=== PATIENT | male | born 1960 | race Caucasian/White ===

== ENCOUNTER 2017-04-19 11:53 | Observation (INO) | payer OTHER ==
[2017-04-19 11:58] VITALS: BMI 25.7
--- NOTE | 2017-04-19 12:24 | C.PDOC ---
Time Seen by Provider: 04/19/17 12:15 Chief Complaint (Nursing): Chest Pain Past Medical History Vital Signs: Last Vital Signs Temp 102.6 F H 04/19/17 11:55 Pulse 108 H 04/19/17 11:55 Resp 18 04/19/17 11:55 BP 124/76 04/19/17 11:55 Pulse Ox 95 04/19/17 12:24 Family History: States: Unknown Family Hx - Social History Hx Alcohol Use: Yes Hx Substance Use: Yes - Immunization History Hx Tetanus Toxoid Vaccination: No Hx Influenza Vaccination: No ED Course And Treatment O2 Sat by Pulse Oximetry: 95 Disposition - Disposition Forms: [facility] (Slovenian)
--- NOTE | 2017-04-19 12:35 | C.PDOC ---
History Of Present Illness 56 year old male who presents to the ER with a complaint of abdominal pain, headache, and fever for 3 days, associated with some diarrhea, cough, and congestion. Denies nausea, vomiting, or other associated symptoms. Time Seen by Provider: 04/19/17 12:15 Chief Complaint (Nursing): Chest Pain History Per: Patient History/Exam Limitations: no limitations Onset/Duration Of Symptoms: Days Current Symptoms Are (Timing): Still Present Radiation Of Pain To:: None Quality Of Discomfort: Unable To Describe Associated Symptoms: Fever, Diarrhea. denies: Nausea, Vomiting Exacerbating Factors: None Alleviating Factors: None Recent travel outside of the [place]: No Past Medical History Reviewed: Historical Data, Nursing Documentation, Vital Signs Vital Signs: Last Vital Signs Temp 99 F 04/19/17 15:20 Pulse 77 04/19/17 16:48 Resp 14 04/19/17 16:48 BP 91/57 L 04/19/17 16:48 Pulse Ox 94 L 04/19/17 16:48 - Medical History PMH: No Chronic Diseases Surgical History: No Surg Hx Family History: States: Unknown Family Hx - Social History Hx Alcohol Use: Yes Hx Substance Use: Yes - Immunization History Hx Tetanus Toxoid Vaccination: No Hx Influenza Vaccination: No Hx Pneumococcal Vaccination: No Review Of Systems Except As Marked, All Systems Reviewed And Found Negative. Constitutional: Positive for: Fever ENT: Positive for: Nose Congestion Respiratory: Positive for: Cough Gastrointestinal: Positive for: Abdominal Pain, Diarrhea. Negative for: Nausea , Vomiting Neurological: Positive for: Headache Physical Exam - Physical Exam Appears: Non-toxic, No Acute Distress Skin: Normal Color, Warm, Dry Head: Atraumatic, Normacephalic Nose: Normal, No Discharge Oral Mucosa: Moist Neck: Normal, Supple Chest: Symmetrical Cardiovascular: Rhythm Regular Respiratory: Normal Breath Sounds, No Accessory Muscle Use, No Rales, No Rhonchi , No Wheezing Gastrointestinal/Abdominal: Soft, No Tenderness Neurological/Psych: Oriented x3, Normal Speech, Normal Cognition ED Course And Treatment - Laboratory Results Result Diagrams: 04/19/17 13:54 04/19/17 13:54 ECG: Interpreted By Me, Viewed By Me ECG Rhythm: Sinus Tachycardia ECG Interpretation: Normal Rate From EC O2 Sat by Pulse Oximetry: 95 (Room air) Pulse Ox Interpretation: Normal - Radiology CXR: Interpreted by Me, Viewed By Me CXR Interpretation: Yes: Infiltrates (Possible to right lung, compared to prior) Progress - Re-Evaluation Re-evaluation Note: 04/19/17 15:08 APPEARS COMFORTABLE NARD. 95% RA. PENDING CT, UA 04/19/17 16:58 d/w dr SERRANO WILL ADMIT - Data Reviewed Data Reviewed: Lab, Diagnostic imaging, EKG, Old records - Continuity of Care Discussed patient case with:: Patient, Family-HIPPA compliant Medical Decision Making Medical Decision Making: Plan: * Blood work * CT abd/pel * EKG * CXR * Cultures * Tylenol * IV fluids Disposition Counseled Patient/Family Regarding: Studies Performed, Diagnosis - Disposition Disposition: HOSPITALIZED Disposition Time: 17:00 Condition: STABLE Forms: [employer] [facility] (Lao) - POA Present On Arrival: None - Clinical Impression Clinical Impression: Pneumonia - Scribe Statement The provider has reviewed the documentation as recorded by the Scribe Asael Camarillo All medical record entries made by the Scribe were at my direction and personally dictated by me. I have reviewed the chart and agree that the record accurately reflects my personal performance of the history, physical exam, medical decision making, and the department course for this patient. I have also personally directed, reviewed, and agree with the discharge instructions and disposition. Decision To Admit - Pt Status Changed To: Hospital Disposition Of: Observation - . Bed Request Type: Regular Admitting Physician: Ailin Serrano Patient Diagnosis: Pneumonia
[2017-04-19] MEDS ORDERED: Azithromycin 500 MG in Sodium Chloride 0.9% 250 ML IV STA (12:39)
[2017-04-19] MEDS ORDERED: cefTRIAXone IV 1 gm in Dextros 50 ML IV ONE (12:39)
--- NOTE | 2017-04-19 13:08 | RAD ---
HISTORY: Sepsis Patient COMPARISON: Chest x-ray performed 02/14/16 TECHNIQUE: Chest, one view. FINDINGS: LUNGS: Patchy opacity in the medial right lower lobe may reflect atelectasis or developing infiltrate. Please note that chest x-ray has limited sensitivity for the detection of pulmonary masses. PLEURA: No significant pleural effusion identified. No definite pneumothorax . CARDIOVASCULAR: Heart size appears within normal limits. OSSEOUS STRUCTURES: No acute osseous abnormality identified. VISUALIZED UPPER ABDOMEN: Unremarkable. OTHER FINDINGS: None. IMPRESSION: Patchy opacity in the medial right lower lobe may reflect atelectasis or developing infiltrate. Correlate clinically.
[2017-04-19 13:49] LABS: VENOUS BLOOD GAS BASE EXCESS 1.1 mmol/L (0.0-2.0); VENOUS BLOOD GAS PCO2 37 mmHg (40-60); VENOUS BLOOD PH 7.44 (7.32-7.43)
[2017-04-19 13:59] LABS: BASO # 0.1 K/uL (0.0-0.2); BASO % 0.7 % (0.0-2.0); EOS # 0.1 K/uL (0.0-0.7); EOS % 0.5 % (0.0-4.0); HEMATOCRIT 40.4 % (35.0-51.0); LYMPH % 7.9 % (20.0-40.0); MEAN CELL VOLUME 90.1 fL (80.0-94.0); MEAN CORPUSCULAR HEMOGLOBIN 30.9 pg (27.0-31.0); MEAN CORPUSCULAR HGB CONC 34.3 g/dL (33.0-37.0); MEAN PLATELET VOLUME 7.3 fL (7.2-11.7); MONO # 0.9 K/uL (0.0-0.8); MONO % 7.5 % (0.0-10.0); PLATELET COUNT 219 K/uL (130-400); RED CELL DISTRIBUTION WIDTH 12.9 % (11.5-14.5); WHITE BLOOD COUNT 12.1 K/uL (4.8-10.8)
[2017-04-19 14:07] LABS: INR 1.2
[2017-04-19 14:08] LABS: CHLORIDE 100 mmol/L (98-107); POTASSIUM 3.7 mmol/L (3.6-5.2); SODIUM 134 mmol/L (132-148)
[2017-04-19 14:10] LABS: ALB/GLOB RATIO 1.3 (1.0-2.1); ALKALINE PHOSPHATASE 66 U/L (38-126); AST/SGOT 23 U/L (17-59); BILIRUBIN,TOTAL 0.6 mg/dL (0.2-1.3); BLOOD UREA NITROGEN 15 mg/dL (9-20); CARBON DIOXIDE 24 mmol/L (22-30); GFR AFRICAN-AMERICAN > 60; TOTAL PROTEIN 7.2 g/dL (6.3-8.3)
[2017-04-19 14:11] LABS: ALT/SGPT 33 U/L (21-72); CALCIUM 8.7 mg/dl (8.6-10.4); GLUCOSE,RANDOM 101 mg/dL (75-110); MAGNESIUM 1.6 mg/dL (1.6-2.3); PHOSPHOROUS 2.3 mg/dL (2.5-4.5)
[2017-04-19 14:46] LABS: NEUTROPHIL 78 % (50-75); TOTAL CELLS COUNTED 100
[2017-04-19] MEDS ORDERED: cefTRIAXone IV 1 gm in Dextros 50 ML IVPB ONE (14:59)
[2017-04-19 16:03] LABS: RBC URINE 22 /hpf (0-3); URINE BACTERIA OCC (<OCC); URINE BILIRUBIN NEGATIVE (NEGATIVE); URINE BLOOD 1+ (NEGATIVE); URINE COLOR Yellow (YELLOW); URINE GLUCOSE (UA) NORMAL (Normal); URINE KETONE NEGATIVE (NEGATIVE); URINE LEUKOCYTE ESTERASE 1+ Leu/uL (Negative); URINE PROTEIN NEGATIVE (NEGATIVE); WBC URINE 25 /hpf (0-5)
[2017-04-19] MEDS ORDERED: Iodixanol 320 MG/ML 100 ML BOTTLE IV ONE (16:10)
--- NOTE | 2017-04-19 16:43 | CT ---
PROCEDURE: CT Abdomen and Pelvis with contrast HISTORY: ABD PAIN, FEVER COMPARISON: None. TECHNIQUE: Contrast dose: 100 mL Visipaque 320 Radiation dose: Total exam DLP = 280.91 mGy-cm. This CT exam was performed using one or more of the following dose reduction techniques: Automated exposure control, adjustment of the mA and/or kV according to patient size, and/or use of iterative reconstruction technique. FINDINGS: LOWER THORAX: Patchy right middle lobe pulmonary infiltrate. Bibasilar lower lobe dependent atelectasis. LIVER: Mild hepatomegaly. The liver measures 19.0 cm craniocaudal. Smooth contour. No mass. No biliary dilatation. GALLBLADDER AND BILE DUCTS: Unremarkable. PANCREAS: Unremarkable. No gross lesion or ductal dilatation. SPLEEN: Unremarkable. ADRENALS: Unremarkable. No mass. KIDNEYS AND URETERS: Unremarkable. No hydronephrosis. No solid mass. VASCULATURE: Unremarkable. No aortic aneurysm. BOWEL: Sigmoid diverticulosis. No evidence of diverticulitis. No bowel obstruction. No other abnormal bowel loops are identified. APPENDIX: Normal appendix. PERITONEUM: Unremarkable. No free fluid. No free air. LYMPH NODES: Unremarkable. No enlarged lymph nodes. BLADDER: Unremarkable. REPRODUCTIVE: Normal prostate BONES: Lumbar dextroscoliosis. OTHER FINDINGS: None. IMPRESSION: Right middle lobe pulmonary infiltrate. Likely pneumonia. No other acute abnormality.
--- NOTE | 2017-04-19 17:37 | CP.PCM.HP ---
<Prosper Pisano - Last Filed: 04/19/17 18:57> History of Present Illness - History of Present Illness History of Present Illness: CC: not feeling well HPI: 56M with no significant PMHx here due to fever. Pt complains of not feeling well for the past 3 days associated with yellow productive cough, and today with subjective fever. Pt said he had similar episode last year and went away after antibiotics prescribed by the ER. Pt also complains of abdominal pain for the past few days but spontaneously resolves. Pt has been [address] for the past 15 years and has connection for getting food and clothings. Currently denied chest pain, SOB, n/v, constipation, diarrhea, swelling, chills. NKDA PMHx: none PSHx: none FMHx: reviewed and noncontributory Social: 2-3 packs a day for 45 years, drinks 4x half pint rum daily for 45 years , last drink this morning. lives [address] Present on Admission - Present on Admission Any Indicators Present on Admission: No Review of Systems - Constitutional Constitutional: Chills, Fever. absent: Anorexia, Weight Loss, Weakness - Cardiovascular Cardiovascular: absent: Chest Pain, Chest Pain with Activity, Dyspnea, Edema - Respiratory Respiratory: Cough, Chest Congestion. absent: Dyspnea, Hemoptysis, Dyspnea on Exertion - Gastrointestinal Gastrointestinal: Abdominal Pain. absent: Constipation, Diarrhea, Nausea, Vomiting - Genitourinary Genitourinary: absent: Dysuria, Pyuria - Musculoskeletal Musculoskeletal: absent: Numbness Past Patient History - Infectious Disease Hx of Infectious Diseases: None - Past Social History Smoking Status: Heavy Smoker > 10 Cigarettes Daily - PSYCHIATRIC Hx Substance Use: Yes - SURGICAL HISTORY Hx Surgeries: No - ANESTHESIA Hx Anesthesia: No Hx Anesthesia Reactions: No Meds Allergies/Adverse Reactions: Allergies Allergy/AdvReac Type Severity Reaction Status Date / Time No Known Allergies Allergy Unverified 02/14/16 17:59 Physical Exam - Constitutional Appears: Non-toxic, No Acute Distress, Unkempt - Head Exam Head Exam: NORMAL INSPECTION, NORMOCEPHALIC - Eye Exam Eye Exam: Normal appearance Pupil Exam: NORMAL ACCOMODATION - ENT Exam ENT Exam: Mucous Membranes Moist Additional comments: Poor dentition - Respiratory Exam Respiratory Exam: Rales (bilateral lower bases), NORMAL BREATHING PATTERN - Cardiovascular Exam Cardiovascular Exam: REGULAR RHYTHM, +S1, +S2. absent: Gallop, Rubs - GI/Abdominal Exam GI & Abdominal Exam: Normal Bowel Sounds, Soft. absent: Tenderness - Neurological Exam Neurological exam: Alert, Oriented x3 - Psychiatric Exam Psychiatric exam: Normal Mood - Skin Skin Exam: Intact Results - Vital Signs Recent Vital Signs: Last Vital Signs Temp 99 F 04/19/17 15:20 Pulse 77 04/19/17 16:48 Resp 14 04/19/17 16:48 BP 91/57 L 04/19/17 16:48 Pulse Ox 95 04/19/17 17:00 - Labs Result Diagrams: 04/19/17 13:54 04/19/17 13:54 Labs: Laboratory Results - last 24 hr 04/19/17 04/19/17 04/19/17 13:45 13:54 13:54 WBC 12.1 H RBC 4.48 Hgb 13.9 D Hct 40.4 MCV 90.1 MCH 30.9 MCHC 34.3 RDW 12.9 Plt Count 219 MPV 7.3 Neut % (Auto) 83.4 H Lymph % (Auto) 7.9 L [place] % (Auto) 7.5 Eos % (Auto) 0.5 Baso % (Auto) 0.7 Neut # 10.1 H Lymph # 1.0 [place] # 0.9 H Eos # 0.1 Baso # 0.1 Neutrophils % (Manual) 78 H Band Neutrophils % 3 H Lymphocytes % (Manual) 11 L Monocytes % (Manual) 8 Platelet Estimate Normal RBC Morphology Normal PT 13.8 H INR 1.2 APTT 54 H pO2 68 H VBG pH 7.44 H VBG pCO2 37 L VBG HCO3 25.7 VBG Total CO2 26.2 VBG O2 Sat (Calc) 96.2 H VBG Base Excess 1.1 VBG Potassium 3.5 L Sodium 136.0 Chloride 107.0 Glucose 102 Lactate 0.9 Potassium Carbon Dioxide Anion Gap BUN Creatinine Est GFR ( Amer) Est GFR (Non-Af Amer) Random Glucose Calcium Phosphorus Magnesium Total Bilirubin AST ALT Alkaline Phosphatase Total Protein Albumin Globulin Albumin/Globulin Ratio Venous Blood Potassium 3.5 L Influenza Typ A,B (EIA) 04/19/17 04/19/17 13:54 14:58 WBC RBC Hgb Hct MCV MCH MCHC RDW Plt Count MPV Neut % (Auto) Lymph % (Auto) [place] % (Auto) Eos % (Auto) Baso % (Auto) Neut # Lymph # [place] # Eos # Baso # Neutrophils % (Manual) Band Neutrophils % Lymphocytes % (Manual) Monocytes % (Manual) Platelet Estimate RBC Morphology PT INR APTT pO2 VBG pH VBG pCO2 VBG HCO3 VBG Total CO2 VBG O2 Sat (Calc) VBG Base Excess VBG Potassium Sodium 134 Chloride 100 Glucose Lactate Potassium 3.7 Carbon Dioxide 24 Anion Gap 14 BUN 15 Creatinine 0.8 Est GFR ( Amer) > 60 Est GFR (Non-Af Amer) > 60 Random Glucose 101 Calcium 8.7 Phosphorus 2.3 L Magnesium 1.6 Total Bilirubin 0.6 AST 23 ALT 33 Alkaline Phosphatase 66 Total Protein 7.2 Albumin 4.1 Globulin 3.2 Albumin/Globulin Ratio 1.3 Venous Blood Potassium Influenza Typ A,B (EIA) Negative for flu a/b Assessment & Plan - Assessment and Plan (Free Text) Assessment: Pneumonia CXR showed RLL opacity, CT showed right middle lobe pulmonary infiltrate. EKG sinus tachycardia @ 106, currently 68. WBC 12 with 3 bands. Temp 102.6 in ED, currently 99. Zithromax and Rocephin given in ED. Continue Zithromax 500mg IV daily and Rocephin 1gm IV daily. F/U blood and urine culture. SIRS See above. Will monitor for sepsis. Hypotension Lactate WNL in ED. 1L NS bolus. Continue monitoring. Abdominal pain CT showed no acute abdominal etiologies. Exam unremarkable. F/U lipase. Tobacco use Nicotine patch 21mg TD daily. ETOH use CIWA protocol. Ativan PRN for withdrawal. Will start Librium taper if needed. F/U ETOH level. Prophylactic measure SCD, pepcid, hepSQ. PT/OT, social work referral. <Ailin Gandhi V - Last Filed: 04/19/17 22:21> Results - Vital Signs Recent Vital Signs: Last Vital Signs Temp 99 F 04/19/17 20:47 Pulse 71 04/19/17 20:47 Resp 20 04/19/17 20:47 BP 105/69 04/19/17 20:47 Pulse Ox 95 04/19/17 20:47 - Labs Result Diagrams: 04/19/17 13:54 04/19/17 13:54 Labs: Laboratory Results - last 24 hr 10/03/2804/19/17 04/19/17 13:45 13:54 13:54 WBC 12.1 H RBC 4.48 Hgb 13.9 D Hct 40.4 MCV 90.1 MCH 30.9 MCHC 34.3 RDW 12.9 Plt Count 219 MPV 7.3 Neut % (Auto) 83.4 H Lymph % (Auto) 7.9 L [place] % (Auto) 7.5 Eos % (Auto) 0.5 Baso % (Auto) 0.7 Neut # 10.1 H Lymph # 1.0 [place] # 0.9 H Eos # 0.1 Baso # 0.1 Neutrophils % (Manual) 78 H Band Neutrophils % 3 H Lymphocytes % (Manual) 11 L Monocytes % (Manual) 8 Platelet Estimate Normal RBC Morphology Normal PT 13.8 H INR 1.2 APTT 54 H pO2 68 H VBG pH 7.44 H VBG pCO2 37 L VBG HCO3 25.7 VBG Total CO2 26.2 VBG O2 Sat (Calc) 96.2 H VBG Base Excess 1.1 VBG Potassium 3.5 L Sodium 136.0 Chloride 107.0 Glucose 102 Lactate 0.9 Potassium Carbon Dioxide Anion Gap BUN Creatinine Est GFR ( Amer) Est GFR (Non-Af Amer) Random Glucose Calcium Phosphorus Magnesium Total Bilirubin AST ALT Alkaline Phosphatase Total Protein Albumin Globulin Albumin/Globulin Ratio Triglycerides Cholesterol LDL Cholesterol Direct HDL Cholesterol Lipase Venous Blood Potassium 3.5 L Urine Color Urine Clarity Urine pH Ur Specific [place] Urine Protein Urine Glucose (UA) Urine Ketones Urine Blood Urine Nitrate Urine Bilirubin Urine Urobilinogen Ur Leukocyte Esterase Urine WBC (Auto) Urine RBC (Auto) Ur Squamous Epith Cells Urine Bacteria Alcohol, Quantitative Influenza Typ A,B (EIA) Ur L.pneumophila Ag Mycoplasma pneumon IgM 04/19/17 04/19/17 04/19/17 13:54 14:58 15:24 WBC RBC Hgb Hct MCV MCH MCHC RDW Plt Count MPV Neut % (Auto) Lymph % (Auto) [place] % (Auto) Eos % (Auto) Baso % (Auto) Neut # Lymph # [place] # Eos # Baso # Neutrophils % (Manual) Band Neutrophils % Lymphocytes % (Manual) Monocytes % (Manual) Platelet Estimate RBC Morphology PT INR APTT pO2 VBG pH VBG pCO2 VBG HCO3 VBG Total CO2 VBG O2 Sat (Calc) VBG Base Excess VBG Potassium Sodium 134 Chloride 100 Glucose Lactate Potassium 3.7 Carbon Dioxide 24 Anion Gap 14 BUN 15 Creatinine 0.8 Est GFR ( Amer) > 60 Est GFR (Non-Af Amer) > 60 Random Glucose 101 Calcium 8.7 Phosphorus 2.3 L Magnesium 1.6 Total Bilirubin 0.6 AST 23 ALT 33 Alkaline Phosphatase 66 Total Protein 7.2 Albumin 4.1 Globulin 3.2 Albumin/Globulin Ratio 1.3 Triglycerides Cholesterol LDL Cholesterol Direct HDL Cholesterol Lipase Venous Blood Potassium Urine Color Yellow Urine Clarity Clear Urine pH 6.0 Ur Specific [place] 1.017 Urine Protein Negative Urine Glucose (UA) Normal Urine Ketones Negative Urine Blood 1+ H Urine Nitrate Negative Urine Bilirubin Negative Urine Urobilinogen 2.0 Ur Leukocyte Esterase 1+ H Urine WBC (Auto) 25 H Urine RBC (Auto) 22 H Ur Squamous Epith Cells < 1 Urine Bacteria Occ H Alcohol, Quantitative Influenza Typ A,B (EIA) Negative for flu a/b Ur L.pneumophila Ag Mycoplasma pneumon IgM 04/19/17 04/19/17 04/19/17 18:02 18:20 18:28 WBC RBC Hgb Hct MCV MCH MCHC RDW Plt Count MPV Neut % (Auto) Lymph % (Auto) [place] % (Auto) Eos % (Auto) Baso % (Auto) Neut # Lymph # [place] # Eos # Baso # Neutrophils % (Manual) Band Neutrophils % Lymphocytes % (Manual) Monocytes % (Manual) Platelet Estimate RBC Morphology PT INR APTT pO2 54 VBG pH 7.40 VBG pCO2 42 VBG HCO3 25.4 VBG Total CO2 27.3 VBG O2 Sat (Calc) 91.1 H VBG Base Excess 1.0 VBG Potassium 3.7 Sodium 137.0 Chloride 108.0 H Glucose 101 Lactate 0.7 Potassium Carbon Dioxide Anion Gap BUN Creatinine Est GFR ( Amer) Est GFR (Non-Af Amer) Random Glucose Calcium Phosphorus Magnesium Total Bilirubin AST ALT Alkaline Phosphatase Total Protein Albumin Globulin Albumin/Globulin Ratio Triglycerides 177 H Cholesterol 120 LDL Cholesterol Direct 59 HDL Cholesterol 44 Lipase 23 Venous Blood Potassium 3.7 Urine Color Urine Clarity Urine pH Ur Specific [place] Urine Protein Urine Glucose (UA) Urine Ketones Urine Blood Urine Nitrate Urine Bilirubin Urine Urobilinogen Ur Leukocyte Esterase Urine WBC (Auto) Urine RBC (Auto) Ur Squamous Epith Cells Urine Bacteria Alcohol, Quantitative < 10 Influenza Typ A,B (EIA) Ur L.pneumophila Ag Negative Mycoplasma pneumon IgM 04/19/17 18:28 WBC RBC Hgb Hct MCV MCH MCHC RDW Plt Count MPV Neut % (Auto) Lymph % (Auto) [place] % (Auto) Eos % (Auto) Baso % (Auto) Neut # Lymph # [place] # Eos # Baso # Neutrophils % (Manual) Band Neutrophils % Lymphocytes % (Manual) Monocytes % (Manual) Platelet Estimate RBC Morphology PT INR APTT pO2 VBG pH VBG pCO2 VBG HCO3 VBG Total CO2 VBG O2 Sat (Calc) VBG Base Excess VBG Potassium Sodium Chloride Glucose Lactate Potassium Carbon Dioxide Anion Gap BUN Creatinine Est GFR ( Amer) Est GFR (Non-Af Amer) Random Glucose Calcium Phosphorus Magnesium Total Bilirubin AST ALT Alkaline Phosphatase Total Protein Albumin Globulin Albumin/Globulin Ratio Triglycerides Cholesterol LDL Cholesterol Direct HDL Cholesterol Lipase Venous Blood Potassium Urine Color Urine Clarity Urine pH Ur Specific [place] Urine Protein Urine Glucose (UA) Urine Ketones Urine Blood Urine Nitrate Urine Bilirubin Urine Urobilinogen Ur Leukocyte Esterase Urine WBC (Auto) Urine RBC (Auto) Ur Squamous Epith Cells Urine Bacteria Alcohol, Quantitative Influenza Typ A,B (EIA) Ur L.pneumophila Ag Mycoplasma pneumon IgM Negative Attending/Attestation - Attestation I have personally seen and examined this patient.: Yes I have fully participated in the care of the patient.: Yes I have reviewed all pertinent clinical information: Yes Notes (Text): Patient seen, examined in Hallway Bed 1 in [facility] ED with the Resident on at approximately 5:40PM. Patient is homeless fellow reporting 3 day history of shortness of breathe, productive cough, and reports fever which prompted him to come to the hospital. Patient is also current smoker, and alcohol user. patient denies hx of alcohol withdrawal/withdrawal seizures. patient reports he is hungry and asking for sandwich at bedside. General: AAOX3, unkempt, no acute distress heart: s1,s2 tachycardia Lungs: Decreased breathe sounds, no wheezing Abdomen: soft NT/ND, +BS X4 quad, neg rebound, neg guarding Extremities: no cyanosis, no clubbing, no edema appreciated Assessment/Plan 1) SIRS; Pneumonia * Monitor for sepsis * Criteria: WBC: 12, fever: 102.6F; Lactate repeat twice both normal-->code sepsis not called given normal lactate and blood pressure improved with fluid * CXR (04/19/17) showed RLL opacity * CT Abdomen/pelvis (04/19/17): showed right middle lobe pulmonary infiltrate. likely pneumonia * PSI: Age and Systolic Blood Pressure <90--> Risk Class III: 0.9-2.8% mortality --Outpatient or inpatient pending clinical judgement * Started on Rocephin 1gram IV q daily and Azithromycin 500mg IV qdaily to cover for community acquired pneumonia * Legionella: negative, Mycoplasma Igm: negative * Influenza: negative * Give fluid bolus; and started on IV maintenance fluid * f/u blood and urine cultures 2) Abdominal pain * CT showed no acute abdominal etiologies. Exam unremarkable. * Lipase: normal 3) Tobacco use * Nicotine patch 21mg TD daily. 4) ETOH use * CIWA protocol. * Ativan PRN for withdrawal. * Will start Librium taper if needed. * F/U ETOH level. 5) Abnormal UA * Repeat UA, urine culture * Renal US reason: hematuria; r/o mass 6) Prophylactic measure * SCD, pepcid, hepSQ. * PT/OT, social work referral
[2017-04-19] MEDS ORDERED: Sodium Chloride 0.9% 500 ML IV ONE (17:56)
[2017-04-19] MEDS ORDERED: Sodium Chloride 0.9% 1,000 ML IV ONE ×2 (17:56→18:03)
[2017-04-19] MEDS ORDERED: Azithromycin 500mg/250ML NS 500 MG/250 ML BAG IVPB SCH (18:15)
[2017-04-19 18:22] LABS: CHOLESTEROL 120 mg/dL (0-199)
[2017-04-19 18:23] LABS: VENOUS BLOOD GAS PCO2 42 mmHg (40-60)
[2017-04-19 18:23] LABS: ALCOHOL SERUM < 10 mg/dl (0-10)
[2017-04-19 20:47] VITALS: RESP 20
[2017-04-19] MEDS: Sodium Chloride 0.9% 1,000 ML IV SCH (23:17)
[2017-04-20 06:16] LABS: URINE BILIRUBIN NEGATIVE (NEGATIVE); URINE BLOOD NEGATIVE (NEGATIVE); URINE COLOR Straw (YELLOW); URINE GLUCOSE (UA) NORMAL (Normal); URINE KETONE NEGATIVE (NEGATIVE); URINE LEUKOCYTE ESTERASE NEG Leu/uL (Negative); URINE PROTEIN NEGATIVE (NEGATIVE); URINE UROBILINOGEN NORMAL mg/dL (0.2-1.0); WBC URINE 1 /hpf (0-5)
[2017-04-20 07:26] LABS: BASO # 0.1 K/uL (0.0-0.2); BASO % 1.1 % (0.0-2.0); EOS # 0.2 K/uL (0.0-0.7); EOS % 1.6 % (0.0-4.0); HEMATOCRIT 39.8 % (35.0-51.0); LYMPH # 2.1 K/uL (1.0-4.3); LYMPH % 22.2 % (20.0-40.0); MEAN CELL VOLUME 91.4 fL (80.0-94.0); MEAN CORPUSCULAR HEMOGLOBIN 31.7 pg (27.0-31.0); MEAN CORPUSCULAR HGB CONC 34.7 g/dL (33.0-37.0); MEAN PLATELET VOLUME 8.1 fL (7.2-11.7); MONO # 0.7 K/uL (0.0-0.8); MONO % 7.4 % (0.0-10.0); NRBC % 0.1 % (0.0-2.0); WHITE BLOOD COUNT 9.6 K/uL (4.8-10.8)
[2017-04-20 07:49] LABS: CHLORIDE 105 mmol/L (98-107); POTASSIUM 3.7 mmol/L (3.6-5.2); SODIUM 138 mmol/L (132-148)
[2017-04-20] MEDS: Sodium Chloride 0.9% 1,000 ML IV SCH ×2 (07:51→17:00)
[2017-04-20 07:52] LABS: ALKALINE PHOSPHATASE 58 U/L (38-126); ALT/SGPT 30 U/L (21-72); AST/SGOT 21 U/L (17-59); BILIRUBIN,TOTAL 0.5 mg/dL (0.2-1.3); BLOOD UREA NITROGEN 13 mg/dL (9-20); CALCIUM 8.5 mg/dl (8.6-10.4); CARBON DIOXIDE 23 mmol/L (22-30); GFR AFRICAN-AMERICAN > 60; GLUCOSE,RANDOM 77 mg/dL (75-110); TOTAL PROTEIN 6.3 g/dL (6.3-8.3)
[2017-04-20 07:53] LABS: MAGNESIUM 1.8 mg/dL (1.6-2.3)
[2017-04-20] MEDS: Potassium & Sodium Phosphate PO SCH ×3 (10:45→18:41)
[2017-04-20] MEDS: Saccharomyces Boulardi 250 mg Cap PO SCH ×2 (10:46→18:41)
[2017-04-20] MEDS: cefTRIAXone IV 1 gm in Dextros 50 ML IVPB SCH (10:46)
[2017-04-20] MEDS: guaiFENesin 600 mg ER Tab PO SCH ×2 (10:46→18:41)
--- NOTE | 2017-04-20 11:27 | US ---
PROCEDURE: Ultrasound of the Kidneys HISTORY: hematuria COMPARISON: None available. TECHNIQUE: Sonogram of the kidneys. FINDINGS: RIGHT KIDNEY: Measures: 11.6 x 4.7 x 5.4 cm. Normal in size, contour and echogenicity. No stone, solid mass lesion or hydronephrosis visualized. LEFT KIDNEY: Measures: 11.5 x 6.2 x 5.5 cm. Normal in size, contour and echogenicity. No stone, solid mass lesion or hydronephrosis visualized. OTHER FINDINGS: None. IMPRESSION: Unremarkable renal sonogram.
[2017-04-20] MEDS ORDERED: Azithromycin 500mg/250ML NS 500 MG/250 ML BAG IVPB SCH (13:00)
[2017-04-20] MEDS: Azithromycin 500 MG in Sodium Chloride 0.9% 250 ML IVPB SCH (13:02)
--- NOTE | 2017-04-20 15:48 | CP.PCM.PN ---
<Milena Villa - Last Filed: 04/20/17 21:21> Subjective - Date & Time of Evaluation Date of Evaluation: 04/20/17 Time of Evaluation: 15:46 - Subjective Subjective: Internal Medicine Progress note for Dr. Gandhi Patient seen and examined while patient is standing in the room. No acute events overnight. Patient seems anxious to leave. Towards the end of the subjective questions, patient calmed down to go to the bed for the physical exam. Patient denies blood in urine, difficulty urinating, abdominal pain. Patient admitted to fevers. Objective - Vital Signs/Intake and Output Vital Signs (last 24 hours): Temp Pulse Resp BP Pulse Ox 98.4 F 74 20 112/63 96 04/20/17 07:19 04/20/17 07:19 04/20/17 07:19 04/20/17 07:19 04/20/17 07:19 Intake and Output: 04/20/17 04/20/17 06:59 18:59 Intake Total 1040 Balance 1040 - Medications Medications: Current Medications Acetaminophen (Tylenol 325mg Tab) 975 mg PO ONCE PRN PRN Reason: Fever >100.4 F Last Admin: 04/19/17 14:20 Dose: 975 mg Diphenhydramine HCl (Benadryl) 12.5 mg IVP DAILY [facility] Famotidine (Pepcid) 20 mg PO BID [facility] Last Admin: 04/20/17 10:46 Dose: 20 mg Guaifenesin (Mucinex La) 600 mg PO BID [facility] Last Admin: 04/20/17 10:46 Dose: 600 mg Heparin Sodium (Porcine) (Heparin) 5,000 units SC Q8 [facility] Last Admin: 04/20/17 13:56 Dose: 5,000 units Ceftriaxone Sodium (Rocephin Iv 1 Gm Duplex) 50 mls @ 100 mls/hr IVPB DAILY [facility] Last Admin: 04/20/17 10:46 Dose: 100 mls/hr Sodium Chloride (Sodium Chloride 0.9%) 1,000 mls @ 100 mls/hr IV .Q10H [facility] Last Admin: 04/20/17 07:51 Dose: 100 mls/hr Azithromycin 500 mg/ Sodium (Chloride) 250 mls @ 167 mls/hr IVPB Q24H [facility] Last Admin: 04/20/17 13:02 Dose: 167 mls/hr Lorazepam (Ativan) 1 mg IVP Q4H PRN PRN Reason: Symptoms of alcohol withdrawl Nicotine (Nicoderm Cq) 1 patch TD DAILY [facility] Last Admin: 04/20/17 10:46 Dose: 1 patch Potassium Phos/Sodium Phos (Neutra-Phos) 1 pkt PO TID [facility] Last Admin: 04/20/17 13:56 Dose: 1 pkt Saccharomyces Boulardii (Florastor) 250 mg PO BID [facility] Last Admin: 04/20/17 10:46 Dose: 250 mg - Labs Labs: 04/20/17 07:16 04/20/17 07:16 PT 13.8 SECONDS (9.7-12.2) H 04/19/17 13:54 INR 1.2 04/19/17 13:54 APTT 54 SECONDS (21-34) H 04/19/17 13:54 - Constitutional Appears: Non-toxic, No Acute Distress - Head Exam Head Exam: NORMAL INSPECTION - Eye Exam Eye Exam: EOMI, Normal appearance - ENT Exam ENT Exam: Mucous Membranes Moist - Neck Exam Neck Exam: Full ROM - Respiratory Exam Respiratory Exam: NORMAL BREATHING PATTERN. absent: Accessory Muscle Use, Respiratory Distress - Cardiovascular Exam Cardiovascular Exam: REGULAR RHYTHM, +S1, +S2. absent: Bradycardia, Tachycardia - GI/Abdominal Exam GI & Abdominal Exam: Soft. absent: Tenderness - Extremities Exam Extremities Exam: Full ROM. absent: Pedal Edema - Neurological Exam Neurological Exam: Alert, Awake - Psychiatric Exam Psychiatric exam: Anxious, Normal Affect - Skin Skin Exam: Dry, Intact, Normal Color, Warm Assessment and Plan - Assessment and Plan (Free Text) Assessment: 1. Pneumonia CXR showed RLL opacity, CT showed right middle lobe pulmonary infiltrate. 04/18 CT Abdomen/Pelvis Right middle lobe pulmonary infiltrate. likely pneumonia. no other acute abnormality 04/19 EKG 04/19 EKG sinus tachycardia @ 106 Patient is currently not tachycardic monitor CBC Temp 102.6 in ED, currently 102.6 04/19 Zithromax and Rocephin given in ED. 04/19 Continue Zithromax 500mg IV daily 04/19 Rocephin 1gm IV daily. 2. SIRS Will monitor for sepsis. f/u blood and urine culture. 04/19 Urine Culture: Negative Influenza and pneumonia vaccine until patient has recovered; recommended to follow-up outpatient with PMD or at the clinic for influenzae/pneumonia vaccination upon resolution of pneumonia. 3. Hypotension, resolved Lactate WNL on admission, 1L NS bolus administered Continue monitoring. NS @ [address] showed no acute abdominal etiologies. Exam unremarkable. 04/19 renal US: unremarkable 04/19 Lipase 23 5. Tobacco use Nicotine patch 21mg TD daily. 6. ETOH use [facility] protocol. Ativan PRN for withdrawal. Will start Librium taper if needed. 04/19 ETOH <10 7. Prophylaxis DVT: SCD, hepSQ GI: pepcid 8. PT/OT social work referral. discussed with Dr. Oksana Villa, PGY1 <Ailin Gandhi V - Last Filed: 04/21/17 00:08> Objective - Vital Signs/Intake and Output Vital Signs (last 24 hours): Temp Pulse Resp BP Pulse Ox 98.4 F 68 20 117/73 97 04/20/17 15:00 04/20/17 15:00 04/20/17 15:00 04/20/17 15:00 04/20/17 15:00 Intake and Output: 04/20/17 04/21/17 18:59 06:59 Intake Total 1400 Balance 1400 - Medications Medications: Current Medications Acetaminophen (Tylenol 325mg Tab) 975 mg PO ONCE PRN PRN Reason: Fever >100.4 F Last Admin: 04/19/17 14:20 Dose: 975 mg Diphenhydramine HCl (Benadryl) 12.5 mg IVP ONCE PRN PRN Reason: Insomnia Famotidine (Pepcid) 20 mg PO BID [facility] Last Admin: 04/20/17 18:41 Dose: 20 mg Guaifenesin (Mucinex La) 600 mg PO BID [facility] Last Admin: 04/20/17 18:41 Dose: 600 mg Heparin Sodium (Porcine) (Heparin) 5,000 units SC Q8 [facility] Last Admin: 04/20/17 21:59 Dose: 5,000 units Ceftriaxone Sodium (Rocephin Iv 1 Gm Duplex) 50 mls @ 100 mls/hr IVPB DAILY [facility] Last Admin: 04/20/17 10:46 Dose: 100 mls/hr Sodium Chloride (Sodium Chloride 0.9%) 1,000 mls @ 100 mls/hr IV .Q10H [facility] Last Admin: 04/20/17 17:00 Dose: Not Given Azithromycin 500 mg/ Sodium (Chloride) 250 mls @ 167 mls/hr IVPB Q24H [facility] Last Admin: 04/20/17 13:02 Dose: 167 mls/hr Lorazepam (Ativan) 1 mg IVP Q4H PRN PRN Reason: Symptoms of alcohol withdrawl Nicotine (Nicoderm Cq) 1 patch TD DAILY [facility] Last Admin: 04/20/17 10:46 Dose: 1 patch Potassium Phos/Sodium Phos (Neutra-Phos) 1 pkt PO TID [facility] Last Admin: 04/20/17 18:41 Dose: 1 pkt Saccharomyces Boulardii (Florastor) 250 mg PO BID [facility] Last Admin: 04/20/17 18:41 Dose: 250 mg - Labs Labs: 04/20/17 07:16 04/20/17 07:16 PT 13.8 SECONDS (9.7-12.2) H 04/19/17 13:54 INR 1.2 04/19/17 13:54 APTT 54 SECONDS (21-34) H 04/19/17 13:54 Attending/Attestation - Attestation I have personally seen and examined this patient.: Yes I have fully participated in the care of the patient.: Yes I have reviewed all pertinent clinical information, including history, physical exam and plan: Yes Notes (Text): This is late computer entry for 04/20/17. Patient seen, examined and case discussed with day-time resident. Patient seen this morning. Patient reports he is feeling better compared to yesterday. patient is reporting productive cough. Patient is afebrile, blood pressure has improved, and white count has improved since starting IV abx yesterday for pneumonia. Patient is also current smoker, and alcohol user. patient denies hx of alcohol withdrawal symptoms no tremors observed/withdrawal seizures. will continue IV abx to cover for pneumonia; patient is feeling better; will continue supportive therapy Patient is possible discharge tomorrow if continues to improve. Cultures are thus far negative. Assessment/Plan 1) SIRS; Pneumonia * Monitor for sepsis * Criteria: WBC: 12, fever: 102.6F; Lactate repeat twice both normal-->code sepsis not called given normal lactate and blood pressure improved with fluid * CXR (04/19/17) showed RLL opacity * CT Abdomen/pelvis (04/19/17): showed right middle lobe pulmonary infiltrate. likely pneumonia * PSI: Age and Systolic Blood Pressure <90--> Risk Class III: 0.9-2.8% mortality --Outpatient or inpatient pending clinical judgement * Started on Rocephin 1gram IV q daily and Azithromycin 500mg IV qdaily to cover for community acquired pneumonia (active since 04/19/17) * Legionella: negative, Mycoplasma Igm: negative * Influenza: negative * Give fluid bolus; and started on IV maintenance fluids * blood culture (04/19/17): no growth after 24 hours X2 * urine culture (04/19/17): no growth 2) Abdominal pain * CT showed no acute abdominal etiologies. Exam unremarkable. * Lipase: normal 3) Tobacco use * Nicotine patch 21mg TD daily. 4) ETOH use * [facility] protocol. * Ativan PRN for withdrawal. * Patient is not in active withdrawal * Will start Librium taper if needed. * ETOH level <10 5) Abnormal UA * Repeat UA which is clean, urine culture: no growth * Renal US reason: hematuria; r/o mass: unremarkable 6) Prophylactic measure * SCD, pepcid, hepSQ. * PT/OT, social work referral
[2017-04-20] MEDS ORDERED: DiphenhydrAMINE 50 mg/ml Inj IVP SCH ×2 (22:00)
[2017-04-20] MEDS ORDERED: DiphenhydrAMINE 50 mg/ml Inj IVP PRN (22:44)
[2017-04-21] MEDS: Sodium Chloride 0.9% 1,000 ML IV SCH
[2017-04-21 07:33] LABS: BASO # 0.1 K/uL (0.0-0.2); BASO % 1.2 % (0.0-2.0); EOS # 0.2 K/uL (0.0-0.7); EOS % 2.7 % (0.0-4.0); HEMATOCRIT 43.5 % (35.0-51.0); LYMPH # 2.7 K/uL (1.0-4.3); LYMPH % 38.8 % (20.0-40.0); MEAN CORPUSCULAR HEMOGLOBIN 31.3 pg (27.0-31.0); MEAN CORPUSCULAR HGB CONC 34.3 g/dL (33.0-37.0); MEAN PLATELET VOLUME 7.9 fL (7.2-11.7); MONO # 0.7 K/uL (0.0-0.8); MONO % 9.6 % (0.0-10.0); NRBC % 0.2 % (0.0-2.0); RED CELL DISTRIBUTION WIDTH 12.9 % (11.5-14.5); WHITE BLOOD COUNT 6.9 K/uL (4.8-10.8)
[2017-04-21 07:46] LABS: CHLORIDE 102 mmol/L (98-107)
[2017-04-21 07:47] LABS: POTASSIUM 4.4 mmol/L (3.6-5.2); SODIUM 138 mmol/L (132-148)
[2017-04-21 07:49] LABS: ALB/GLOB RATIO 1.2 (1.0-2.1); ALKALINE PHOSPHATASE 62 U/L (38-126); ALT/SGPT 24 U/L (21-72); AST/SGOT 20 U/L (17-59); BILIRUBIN,TOTAL 0.4 mg/dL (0.2-1.3); BLOOD UREA NITROGEN 14 mg/dL (9-20); CARBON DIOXIDE 27 mmol/L (22-30); GFR AFRICAN-AMERICAN > 60; GLUCOSE,RANDOM 77 mg/dL (75-110)
[2017-04-21 07:50] LABS: CALCIUM 9.1 mg/dl (8.6-10.4); PHOSPHOROUS 3.2 mg/dL (2.5-4.5)
--- NOTE | 2017-04-21 11:14 | CP.PCM.DIS ---
<Milena Villa - Last Filed: 04/21/17 18:22> Provider - Provider Date of Admission: 04/19/17 17:00 Attending physician: Ailin Gandhi DO Time Spent in preparation of Discharge (in minutes): 35 Diagnosis - Discharge Diagnosis (1) Pneumonia Status: Acute Comment: Pneumonia is resolving. treated by oral antibiotics Hospital Course - Lab Results Lab Results: Micro Results 04/19/17 15:00 Blood Blood Culture - Preliminary NO GROWTH AFTER 24 HOURS 04/19/17 14:30 Blood Blood Culture - Preliminary NO GROWTH AFTER 24 HOURS 04/19/17 16:58 Urine,Clean Catch Urine Culture - Final No Growth (<1,000 CFU/ML) Most Recent Lab Values WBC 6.9 K/uL (4.8-10.8) 04/21/17 07:16 RBC 4.78 Mil/uL (4.40-5.90) 04/21/17 07:16 Hgb 14.9 g/dL (12.0-18.0) 04/21/17 07:16 Hct 43.5 % (35.0-51.0) 04/21/17 07:16 MCV 91.0 fL (80.0-94.0) 04/21/17 07:16 MCH 31.3 pg (27.0-31.0) H 04/21/17 07:16 MCHC 34.3 g/dL (33.0-37.0) 04/21/17 07:16 RDW 12.9 % (11.5-14.5) 04/21/17 07:16 Plt Count 241 K/uL (130-400) 04/21/17 07:16 MPV 7.9 fL (7.2-11.7) 04/21/17 07:16 Neut % (Auto) 47.7 % (50.0-75.0) L 04/21/17 07:16 Lymph % (Auto) 38.8 % (20.0-40.0) 04/21/17 07:16 [place] % (Auto) 9.6 % (0.0-10.0) 04/21/17 07:16 Eos % (Auto) 2.7 % (0.0-4.0) 04/21/17 07:16 Baso % (Auto) 1.2 % (0.0-2.0) 04/21/17 07:16 Neut # 3.3 K/uL (1.8-7.0) 04/21/17 07:16 Lymph # 2.7 K/uL (1.0-4.3) 04/21/17 07:16 [place] # 0.7 K/uL (0.0-0.8) 04/21/17 07:16 Eos # 0.2 K/uL (0.0-0.7) 04/21/17 07:16 Baso # 0.1 K/uL (0.0-0.2) 04/21/17 07:16 Neutrophils % (Manual) 78 % (50-75) H 04/19/17 13:54 Band Neutrophils % 3 % (0-2) H 04/19/17 13:54 Lymphocytes % (Manual) 11 % (20-40) L 04/19/17 13:54 Monocytes % (Manual) 8 % (0-10) 04/19/17 13:54 Platelet Estimate Normal (NORMAL) 04/19/17 13:54 RBC Morphology Normal 04/19/17 13:54 PT 13.8 SECONDS (9.7-12.2) H 04/19/17 13:54 INR 1.2 04/19/17 13:54 APTT 54 SECONDS (21-34) H 04/19/17 13:54 pO2 54 mm/Hg (30-55) 04/19/17 18:20 VBG pH 7.40 (7.32-7.43) 04/19/17 18:20 VBG pCO2 42 mmHg (40-60) 04/19/17 18:20 VBG HCO3 25.4 mmol/L 04/19/17 18:20 VBG Total CO2 27.3 mmol/L (22-28) 04/19/17 18:20 VBG O2 Sat (Calc) 91.1 % (40-65) H 04/19/17 18:20 VBG Base Excess 1.0 mmol/L (0.0-2.0) 04/19/17 18:20 VBG Potassium 3.7 mmol/L (3.6-5.2) 04/19/17 18:20 Sodium 137.0 mmol/l (132-148) 04/19/17 18:20 Chloride 108.0 mmol/L (98-107) H 04/19/17 18:20 Glucose 101 mg/dl (75-110) 04/19/17 18:20 Lactate 0.7 mmol/L (0.7-2.1) 04/19/17 18:20 Sodium 138 mmol/L (132-148) 04/21/17 07:16 Potassium 4.4 mmol/L (3.6-5.2) 04/21/17 07:16 Chloride 102 mmol/L (98-107) 04/21/17 07:16 Carbon Dioxide 27 mmol/L (22-30) 04/21/17 07:16 Anion Gap 13 (10-20) 04/21/17 07:16 BUN 14 mg/dL (9-20) 04/21/17 07:16 Creatinine 0.9 mg/dL (0.8-1.5) 04/21/17 07:16 Est GFR ( Amer) > 60 04/21/17 07:16 Est GFR (Non-Af Amer) > 60 04/21/17 07:16 Random Glucose 77 mg/dL (75-110) 04/21/17 07:16 Calcium 9.1 mg/dl (8.6-10.4) 04/21/17 07:16 Phosphorus 3.2 mg/dL (2.5-4.5) 04/21/17 07:16 Magnesium 2.0 mg/dL (1.6-2.3) 04/21/17 07:16 Total Bilirubin 0.4 mg/dL (0.2-1.3) 04/21/17 07:16 AST 20 U/L (17-59) 04/21/17 07:16 ALT 24 U/L (21-72) 04/21/17 07:16 Alkaline Phosphatase 62 U/L (38-126) 04/21/17 07:16 Total Protein 7.0 g/dL (6.3-8.3) 04/21/17 07:16 Albumin 3.8 g/dL (3.5-5.0) 04/21/17 07:16 Globulin 3.2 gm/dL (2.2-3.9) 04/21/17 07:16 Albumin/Globulin Ratio 1.2 (1.0-2.1) 04/21/17 07:16 Triglycerides 177 mg/dL (0-149) H 04/19/17 18:02 Cholesterol 120 mg/dL (0-199) 04/19/17 18:02 LDL Cholesterol Direct 59 mg/dL (0-129) 04/19/17 18:02 HDL Cholesterol 44 mg/dL (30-70) 04/19/17 18:02 Lipase 23 U/L (23-300) 04/19/17 18:02 Procalcitonin 0.34 NG/ML (0.19-0.49) 04/20/17 07:16 Venous Blood Potassium 3.7 mmol/L (3.6-5.2) 04/19/17 18:20 Urine Color Straw (YELLOW) 04/20/17 06:10 Urine Clarity Clear (Clear) 04/20/17 06:10 Urine pH 7.0 (5.0-8.0) 04/20/17 06:10 Ur Specific Robeline 1.008 (1.003-1.030) 04/20/17 06:10 Urine Protein Negative mg/dL (NEGATIVE) 04/20/17 06:10 Urine Glucose (UA) Normal mg/dL (Normal) 04/20/17 06:10 Urine Ketones Negative mg/dL (NEGATIVE) 04/20/17 06:10 Urine Blood Negative (NEGATIVE) 04/20/17 06:10 Urine Nitrate Negative (NEGATIVE) 04/20/17 06:10 Urine Bilirubin Negative (NEGATIVE) 04/20/17 06:10 Urine Urobilinogen Normal mg/dL (0.2-1.0) 04/20/17 06:10 Ur Leukocyte Esterase Neg Vidhya/uL (Negative) 04/20/17 06:10 Urine WBC (Auto) 1 /hpf (0-5) 04/20/17 06:10 Urine RBC (Auto) 22 /hpf (0-3) H 04/19/17 15:24 Ur Squamous Epith Cells < 1 /hpf (0-5) 04/19/17 15:24 Urine Bacteria Occ (<OCC) H 04/19/17 15:24 Alcohol, Quantitative < 10 mg/dl (0-10) 04/19/17 18:02 Influenza Typ A,B (EIA) Negative for flu a/b (NEGATIVE) 04/19/17 14:58 Ur L.pneumophila Ag Negative (NEGATIVE) 04/19/17 18:28 Mycoplasma pneumon IgM Negative (NEGATIVE) 04/19/17 18:28 - Hospital Course Hospital Course: HPI: 56M with no significant PMHx here due to fever. Pt complains of not feeling well for the past 3 days associated with yellow productive cough, and today with subjective fever. Pt said he had similar episode last year and went away after antibiotics prescribed by the ER. Pt also complains of abdominal pain for the past few days but spontaneously resolves. Pt has been living [address] for the past 15 years and has connection for getting food and clothings. Currently denied chest pain, SOB, n/v, constipation, diarrhea, swelling, chills. patient is admitted for pneumonia. held influenza and pneumonia vaccine until patient has recovered; recommended to follow-up outpatient with PMD or at the clinic for influenzae/pneumonia vaccination upon resolution of pneumonia. Urine cultures and blood cultures were drawn Hospital Course: Patient complained of abdominal pain CT Chest, abdomen/pelvis: right middle lobe pulmonary infiltrate. likely pneumonia. no other acute abnormality. Exam unremarkable. 04/19 renal US: unremarkable During hospital stay, patient seemed anxious to leave and denied any fever, chills, difficulty urinating, shortness of breath and chest pain. Patient admitted to coughing with phlegm. Social work was consulted for patient because he's homeless. EKG was ordered for chest pain. IV antibiotics for empiric treatment of pneumonia continued (IV Zithromax 500mg IV QD and Rocephin 1gm IV daily ). Patient was given NS @ 100 during stay for adequate hydration. Patient tolerated his heart healthy diet as welll. Blood cultures collected 04/19 no growth urine culture collected 04/19 no growth Today, patient was seen and examined at bedside and denied any fever, chills, difficulty urinating. Patient admitted to cough with phlegm. Patient states he' s ready to go home. Upon discussion, Patient was seen to be medically stable for discharge on medications for pneumonia. Patient finished his IV Zithromax 500mg IV QD and Rocephin 1gm IV daily today and was discharged on Z-pack 250mg POQD #6. Patient discharged on instructions to Patient is to continue antibiotics as directed: Patient is to take Z-bin for 6 days Guaifenesin/pseudoephedrine 1 tablet PO BID x 14 days Promethazine HCl/Codeine 6.25-10mg/5ml PO BID Patient is to follow up with a primary care doctor if possible in 1 week. Please return to ED if shortness of breath, coughing, coughing up blood, fever, chills. Debe continurar tomando los antibioticos de la manera siguiente: tome el Z-pack por 6 stauffer. Guaifenesin/pseudoephedrine tome yogi tableta por via oral 2 veces al hank X 14 stauffer Promethazine HCl/Codeine 6.25-10mg/5ml por via oral 2 veces al hank gisel yogi mehul con rosas doctor primario si es posible en 1 semana. - Date & Time of H&P Date of H&P: 04/21/17 Time of H&P: 18:07 Discharge Exam - Head Exam Head Exam: NORMAL INSPECTION - Eye Exam Eye Exam: EOMI, Normal appearance - ENT Exam ENT Exam: Mucous Membranes Moist - Respiratory Exam Respiratory Exam: Decreased Breath Sounds, NORMAL BREATHING PATTERN. absent: Accessory Muscle Use - Cardiovascular Exam Cardiovascular Exam: REGULAR RHYTHM, +S1, +S2. absent: Bradycardia, Tachycardia - GI/Abdominal Exam GI & Abdominal Exam: Soft. absent: Rigid, Tenderness - Extremities Exam Extremities exam: full ROM - Back Exam Back exam: FULL ROM - Neurological Exam Neurological exam: Alert, CN II-XII Intact, Oriented x3 - Psychiatric Exam Psychiatric exam: Normal Affect, Normal Mood - Skin Skin Exam: Dry, Intact, Normal Color, Warm Discharge Plan - Discharge Medications Prescriptions: Azithromycin [Z-Bin] 250 mg PO DAILY #6 tab Guaifenesin [Mucinex] 600 mg PO BID 7 Days tab.er.12h Promethazine/Codeine [Phenergan/Codeine Oral Syrup] 5 ml PO Q4H #120 ml - Follow Up Plan Condition: STABLE Disposition: HOME/ ROUTINE Instructions: Decongestant/Expectorant (By mouth), Azithromycin (By mouth), Antibacterial Cleanser (On the skin), Alcohol Intoxication (DC), Pneumonia (DC) Additional Instructions: Patient is medically stable for discharge. Please provide the below instructions for patient in bengali Patient is to continue antibiotics as directed: Patient is to take Z-bin for 6 days Guaifenesin/pseudoephedrine 1 tablet PO BID x 14 days Promethazine HCl/Codeine 6.25-10mg/5ml PO BID Patient is to follow up with a primary care doctor if possible in 1 week. Please return to ED if shortness of breath, coughing, coughing up blood, fever, chills. el paciente esta medicamente estable para el shazia Debe continurar tomando los antibioticos de la manera siguiente: tome el Z-pack por 6 stauffer. Guaifenesin/pseudoephedrine tome yogi tableta por via oral 2 veces al hank X 14 stauffer Promethazine HCl/Codeine 6.25-10mg/5ml por via oral 2 veces al hank gisel yogi mehul con rsoas doctor primario si es posible en 1 semana. por favor vuelva al departamento de emergencias si no puede respirar, si tiene tos, si tiene tos con raiza, fiebre, escalofrios. <Ailin Gandhi V - Last Filed: 04/22/17 22:19> Provider - Provider Date of Admission: 04/19/17 17:00 Attending physician: Ailin Gandhi, DO Hospital Course - Lab Results Lab Results: Micro Results 04/19/17 15:00 Blood Blood Culture - Preliminary NO GROWTH AFTER 24 HOURS 04/19/17 14:30 Blood Blood Culture - Preliminary NO GROWTH AFTER 24 HOURS 04/19/17 16:58 Urine,Clean Catch Urine Culture - Final No Growth (<1,000 CFU/ML) Most Recent Lab Values WBC 6.9 K/uL (4.8-10.8) 04/21/17 07:16 RBC 4.78 Mil/uL (4.40-5.90) 04/21/17 07:16 Hgb 14.9 g/dL (12.0-18.0) 04/21/17 07:16 Hct 43.5 % (35.0-51.0) 04/21/17 07:16 MCV 91.0 fL (80.0-94.0) 04/21/17 07:16 MCH 31.3 pg (27.0-31.0) H 04/21/17 07:16 MCHC 34.3 g/dL (33.0-37.0) 04/21/17 07:16 RDW 12.9 % (11.5-14.5) 04/21/17 07:16 Plt Count 241 K/uL (130-400) 04/21/17 07:16 MPV 7.9 fL (7.2-11.7) 04/21/17 07:16 Neut % (Auto) 47.7 % (50.0-75.0) L 04/21/17 07:16 Lymph % (Auto) 38.8 % (20.0-40.0) 04/21/17 07:16 [place] % (Auto) 9.6 % (0.0-10.0) 04/21/17 07:16 Eos % (Auto) 2.7 % (0.0-4.0) 04/21/17 07:16 Baso % (Auto) 1.2 % (0.0-2.0) 04/21/17 07:16 Neut # 3.3 K/uL (1.8-7.0) 04/21/17 07:16 Lymph # 2.7 K/uL (1.0-4.3) 04/21/17 07:16 [place] # 0.7 K/uL (0.0-0.8) 04/21/17 07:16 Eos # 0.2 K/uL (0.0-0.7) 04/21/17 07:16 Baso # 0.1 K/uL (0.0-0.2) 04/21/17 07:16 Neutrophils % (Manual) 78 % (50-75) H 04/19/17 13:54 Band Neutrophils % 3 % (0-2) H 04/19/17 13:54 Lymphocytes % (Manual) 11 % (20-40) L 04/19/17 13:54 Monocytes % (Manual) 8 % (0-10) 04/19/17 13:54 Platelet Estimate Normal (NORMAL) 04/19/17 13:54 RBC Morphology Normal 04/19/17 13:54 PT 13.8 SECONDS (9.7-12.2) H 04/19/17 13:54 INR 1.2 04/19/17 13:54 APTT 54 SECONDS (21-34) H 04/19/17 13:54 pO2 54 mm/Hg (30-55) 04/19/17 18:20 VBG pH 7.40 (7.32-7.43) 04/19/17 18:20 VBG pCO2 42 mmHg (40-60) 04/19/17 18:20 VBG HCO3 25.4 mmol/L 04/19/17 18:20 VBG Total CO2 27.3 mmol/L (22-28) 04/19/17 18:20 VBG O2 Sat (Calc) 91.1 % (40-65) H 04/19/17 18:20 VBG Base Excess 1.0 mmol/L (0.0-2.0) 04/19/17 18:20 VBG Potassium 3.7 mmol/L (3.6-5.2) 04/19/17 18:20 Sodium 137.0 mmol/l (132-148) 04/19/17 18:20 Chloride 108.0 mmol/L (98-107) H 04/19/17 18:20 Glucose 101 mg/dl (75-110) 04/19/17 18:20 Lactate 0.7 mmol/L (0.7-2.1) 04/19/17 18:20 Sodium 138 mmol/L (132-148) 04/21/17 07:16 Potassium 4.4 mmol/L (3.6-5.2) 04/21/17 07:16 Chloride 102 mmol/L (98-107) 04/21/17 07:16 Carbon Dioxide 27 mmol/L (22-30) 04/21/17 07:16 Anion Gap 13 (10-20) 04/21/17 07:16 BUN 14 mg/dL (9-20) 04/21/17 07:16 Creatinine 0.9 mg/dL (0.8-1.5) 04/21/17 07:16 Est GFR ( Amer) > 60 04/21/17 07:16 Est GFR (Non-Af Amer) > 60 04/21/17 07:16 Random Glucose 77 mg/dL (75-110) 04/21/17 07:16 Calcium 9.1 mg/dl (8.6-10.4) 04/21/17 07:16 Phosphorus 3.2 mg/dL (2.5-4.5) 04/21/17 07:16 Magnesium 2.0 mg/dL (1.6-2.3) 04/21/17 07:16 Total Bilirubin 0.4 mg/dL (0.2-1.3) 04/21/17 07:16 AST 20 U/L (17-59) 04/21/17 07:16 ALT 24 U/L (21-72) 04/21/17 07:16 Alkaline Phosphatase 62 U/L (38-126) 04/21/17 07:16 Total Protein 7.0 g/dL (6.3-8.3) 04/21/17 07:16 Albumin 3.8 g/dL (3.5-5.0) 04/21/17 07:16 Globulin 3.2 gm/dL (2.2-3.9) 04/21/17 07:16 Albumin/Globulin Ratio 1.2 (1.0-2.1) 04/21/17 07:16 Triglycerides 177 mg/dL (0-149) H 04/19/17 18:02 Cholesterol 120 mg/dL (0-199) 04/19/17 18:02 LDL Cholesterol Direct 59 mg/dL (0-129) 04/19/17 18:02 HDL Cholesterol 44 mg/dL (30-70) 04/19/17 18:02 Lipase 23 U/L (23-300) 04/19/17 18:02 Procalcitonin 0.34 NG/ML (0.19-0.49) 04/20/17 07:16 Venous Blood Potassium 3.7 mmol/L (3.6-5.2) 04/19/17 18:20 Urine Color Straw (YELLOW) 04/20/17 06:10 Urine Clarity Clear (Clear) 04/20/17 06:10 Urine pH 7.0 (5.0-8.0) 04/20/17 06:10 Ur Specific [place] 1.008 (1.003-1.030) 04/20/17 06:10 Urine Protein Negative mg/dL (NEGATIVE) 04/20/17 06:10 Urine Glucose (UA) Normal mg/dL (Normal) 04/20/17 06:10 Urine Ketones Negative mg/dL (NEGATIVE) 04/20/17 06:10 Urine Blood Negative (NEGATIVE) 04/20/17 06:10 Urine Nitrate Negative (NEGATIVE) 04/20/17 06:10 Urine Bilirubin Negative (NEGATIVE) 04/20/17 06:10 Urine Urobilinogen Normal mg/dL (0.2-1.0) 04/20/17 06:10 Ur Leukocyte Esterase Neg Vidhya/uL (Negative) 04/20/17 06:10 Urine WBC (Auto) 1 /hpf (0-5) 04/20/17 06:10 Urine RBC (Auto) 22 /hpf (0-3) H 04/19/17 15:24 Ur Squamous Epith Cells < 1 /hpf (0-5) 04/19/17 15:24 Urine Bacteria Occ (<OCC) H 04/19/17 15:24 Alcohol, Quantitative < 10 mg/dl (0-10) 04/19/17 18:02 Influenza Typ A,B (EIA) Negative for flu a/b (NEGATIVE) 04/19/17 14:58 Ur L.pneumophila Ag Negative (NEGATIVE) 04/19/17 18:28 Mycoplasma pneumon IgM Negative (NEGATIVE) 04/19/17 18:28 Attending/Attestation - Attestation I have personally seen and examined this patient.: Yes I have fully participated in the care of the patient.: Yes I have reviewed all pertinent clinical information, including history, physical exam and plan: Yes Notes (Text): Patient seen, examined, and case discussed with day-time resident. Patient reports he is feeling better. patient reports mild productive cough. Patient denies other acute complaints. White count remains normal. Cultures remain negative. Patient medically stable for discharge-->Z-pack, Mucinex, Phenergan w codeine 5ml PO Q4H PRN cough (120 ml) prescriptions provided upon discharge. patient to provided prescription voucher by social work to offset cost of Z-pack. Assessment/Plan 1) SIRS; Pneumonia * Criteria: WBC: 12, fever: 102.6F; Lactate repeat twice both normal-->code sepsis not called given normal lactate and blood pressure improved with fluid * White count has normalized, Afebrile, Cultures remain negative, and blood pressure normalized * PSI: Age and Systolic Blood Pressure <90--> Risk Class III: 0.9-2.8% mortality --Outpatient or inpatient pending clinical judgement * CXR (04/19/17) showed RLL opacity * CT Abdomen/pelvis (04/19/17): showed right middle lobe pulmonary infiltrate. likely pneumonia * Started on Rocephin 1gram IV q daily and Azithromycin 500mg IV qdaily to cover for community acquired pneumonia (active since 04/19/17) * Legionella: negative, Mycoplasma Igm: negative * Influenza: negative * Give fluid bolus; and started on IV maintenance fluids * blood culture (04/19/17): no growth after 48 hours X2 * urine culture (04/19/17): no growth 2) Abdominal pain * CT showed no acute abdominal etiologies. Exam unremarkable. * Lipase: normal 3) Tobacco use * Nicotine patch 21mg TD daily. 4) ETOH use * [facility] protocol. * Ativan PRN for withdrawal. * Patient is not in active withdrawal * Will start Librium taper if needed. * ETOH level <10 5) Abnormal UA * Repeat UA which is clean, urine culture: no growth * Renal US reason: hematuria; r/o mass: unremarkable 6) Prophylactic measure * SCD, pepcid, hepSQ.
[2017-04-21] MEDS: Potassium & Sodium Phosphate PO SCH ×2 (11:45→14:42)
[2017-04-21] MEDS: guaiFENesin 600 mg ER Tab PO SCH (11:45)
[2017-04-21] MEDS: cefTRIAXone IV 1 gm in Dextros 50 ML IVPB SCH (11:46)
[2017-04-21] MEDS: Saccharomyces Boulardi 250 mg Cap PO SCH (11:47)
[2017-04-21] MEDS: Azithromycin 500 MG in Sodium Chloride 0.9% 250 ML IVPB SCH (14:15)
[2017-04-21] MEDS ORDERED: Influenza Vaccine 60 mcg/0.5 mL SYR (4YR UP) IM ONE (16:30)
[2017-04-21] MEDS ORDERED: Pneumococcal 23-Valent Vaccine IM ONE (16:30)
[2017-04-21 16:55] VITALS: BP 117/74; PULSE 79; TEMP 98.4; O2SAT 97
--- NOTE | 2017-04-21 22:52 | CARD ---
APPROVED REPORT EKG Measurement Heart [id number] <Conclusion> Sinus tachycardia Otherwise normal ECG
[2017-04-22] MEDS ORDERED: Influenza Vaccine 60 mcg/0.5 mL SYR (4YR UP) IM ONE (10:00)
[2017-04-22] MEDS ORDERED: Pneumococcal 23-Valent Vaccine IM ONE (10:00)
== END 2017-04-21 16:54 | disposition home or self-care (01) ==
LOC: C.ER 11:53 → C.9E 17:00 → C.3T 18:11 → C.9E 18:56 → C.3T 19:17
PROVIDERS: ADMIT Hospitalist; ATTEND Hospitalist
DX: J18.9 Pneumonia, unspecified organism (principal); F17.200 Nicotine dependence, unspecified, uncomplicated; Z59.0 Homelessness
CPT/HCPCS: 36415; 71010; 74177; 76770; 80053; 80061; 80320; 81001; 82803; 83690; 83735; 84100; 84145; 85025; 85610; 85730; 86738; 87040; 87086; 87449; 87804; 90471; 90674; 90732; 93005; 96360; 97116; 97161; 97165; 97530; 99285; G0378; G8978; G8979; G8980; G8987; G8988; G8989; J0456; J0696; J1200; J1644; J7040; J7050; Q9967